=== PATIENT | male | born 1990 | race African-American/Black ===

== ENCOUNTER 2025-04-26 07:19 | Emergency (ER) | payer OTHER ==
[2025-04-26 07:30] VITALS: BP 141/90; PULSE 98; RESP 18; TEMP 98.4; BMI 29.4
[2025-04-26] MEDS ORDERED: ACETAMINOPHEN 500 MG TABLET (FP) ONE (08:38)
[2025-04-26] MEDS: ACETAMINOPHEN 500 MG TABLET (FP) PO ONE (08:40)
[2025-04-26 16:16] LABS: HIV INTERPRETATION NEGATIVE (NEGATIVE)
[2025-04-26 16:17] LABS: HCV DIAGNOSTIC IN-HOUSE W/RFLX NON-REACTIVE (NONREACTIVE)
== END 2025-04-26 11:52 | disposition home or self-care (01) ==
LOC: JER 07:19 → JERFT 07:19
DX: S06.0X9A Concussion with loss of consciousness of unspecified duration, initial encounter (principal); S86.912A Strain of unspecified muscle(s) and tendon(s) at lower leg level, left leg, initial encounter; S70.12XA Contusion of left thigh, initial encounter; R42 Dizziness and giddiness; Y04.8XXA Assault by other bodily force, initial encounter; Y99.0 Civilian activity done for income or pay
CPT/HCPCS: 36415; 70450-TC; 73562-TC-LT-FY; 73700-TC-RT; 86803; 87389; 99285-25